=== PATIENT | female | born 1980 | race Two or more races ===

== ENCOUNTER 2021-02-10 22:31 | Emergency (ER) | payer MEDICAID ==
[~2021-02-10] VITALS: Ht 175.3 cm; Wt 81.8 kg
[2021-02-10] MEDS ORDERED: iohexol 350MG/ML 100ml bottle IV ONE (23:11)
[2021-02-10 23:25] LABS: BASOPHILS # (AUTO) 0.1 X10'3 (0-0.2); BASOPHILS % (AUTO) 0.7 % (0-1); EOSINOPHILS # (AUTO) 0.7 X10'3 (0-0.9); EOSINOPHILS % (AUTO) 4.2 % (0-6); HEMATOCRIT 38.9 % (35.0-45.0); HEMOGLOBIN 13.1 g/dl (12.0-16.0); LYMPHOCYTES # (AUTO) 4.2 X10'3 (1.1-4.8); LYMPHOCYTES % (AUTO) 25.5 % (21-51); MEAN CORPUSCULAR HEMOGLOBIN 27.4 PG (27.0-31.0); MEAN CORPUSCULAR HGB CONC 33.6 g/dL (33.0-36.5); MEAN CORPUSCULAR VOLUME 81.5 FL (78-98); MEAN PLATELET VOLUME 8.1 FL (7.4-10.4); MONOCYTES # (AUTO) 0.9 X10'3 (0-0.9); MONOCYTES % (AUTO) 5.4 % (2-12); NEUTROPHILS # (AUTO) 10.6 X10'3 (1.8-7.7); NEUTROPHILS % (AUTO) 64.2 % (42-75); PLATELET COUNT 405 X10'3 (140-440); RED BLOOD COUNT 4.78 X10'6 (4.20-5.60); WHITE BLOOD COUNT 16.5 X10'3 (4.5-11.0)
[2021-02-10 23:37] LABS: ALANINE AMINOTRANSFERASE 25 U/L (12-78); ALBUMIN 3.4 G/DL (3.4-5.0); ALBUMIN/GLOBULIN RATIO 0.8 (1.1-1.5); ALKALINE PHOSPHATASE 87 IU/L (46-116); ANION GAP 9 (8-16); ASPARTATE AMINO TRANSFERASE 15 U/L (10-37); BILIRUBIN,TOTAL 0.4 MG/DL (0.1-1.0); BLOOD UREA NITROGEN 10 MG/DL (7-18); BUN/CREATININE RATIO 10.5 (6.6-38.0); CALCIUM 8.6 MG/DL (8.5-10.1); CHLORIDE 104 MMOL/L (99-107); CREATININE 0.95 MG/DL (0.40-0.90); GLUCOSE 108 MG/DL (70-104); POTASSIUM 3.6 MMOL/L (3.5-5.1); SODIUM 140 MMOL/L (135-145); TOTAL CARBON DIOXIDE 27.3 MMOL/L (24-32); TOTAL PROTEIN 7.7 G/DL (6.4-8.2); eGFR 65 ML/MIN
[2021-02-11] MEDS ORDERED: NAPR-56 PO (01:25)
[2021-02-11 01:35] VITALS: BP 154/67
== END 2021-02-11 01:37 | disposition home or self-care (01) ==
LOC: ER 22:35
DX: R06.02 Shortness of breath (principal); R60.0 Localized edema; Z86.16 Personal history of COVID-19; Z79.899 Other long term (current) drug therapy
CPT/HCPCS: 36415; 71275; 80053; 85025; 93005; 93971; 99285; Q9967

== ENCOUNTER 2021-05-12 06:29 | Emergency (ER) | payer MEDICAID ==
[~2021-05-12] VITALS: Ht 175.3 cm; Wt 79.5 kg
[2021-05-12 06:35] VITALS: BP 126/73
[2021-05-12] MEDS ORDERED: NEOM28.37 TOP (08:10)
[2021-05-12] MEDS ORDERED: CEPH250T PO (08:10)
== END 2021-05-12 08:24 | disposition home or self-care (01) ==
LOC: ER 06:29
DX: T23.421A Corrosion of unspecified degree of single right finger (nail) except thumb, initial encounter (principal); Y93.89 Activity, other specified; Y92.89 Other specified places as the place of occurrence of the external cause; Y99.8 Other external cause status; F32.9 Major depressive disorder, single episode, unspecified; Z91.018 Allergy to other foods; Z79.899 Other long term (current) drug therapy
CPT/HCPCS: 99283

== ENCOUNTER 2021-05-16 22:28 | Emergency (ER) | payer MEDICAID ==
[~2021-05-16] VITALS: Ht 175.3 cm; Wt 79.5 kg
[~2021-05-16 22:28] MED LIST: CEPH250T PO; NEOM28.37 TOP
[2021-05-16 22:36] VITALS: BP 110/55
[2021-05-16] MEDS ORDERED: amox tr/potassium clavulanate 875/125mg TAB PO ONE (23:20)
[2021-05-16] MEDS ORDERED: AMOX-117 PO (23:20)
[2021-05-16] MEDS ORDERED: IBUP-1984 PO (23:20)
== END 2021-05-16 23:43 | disposition home or self-care (01) ==
LOC: ER 22:29
DX: T23.7 Corrosion of third degree of wrist and hand (principal); F32.9 Major depressive disorder, single episode, unspecified; Z91.018 Allergy to other foods
CPT/HCPCS: 99283

== ENCOUNTER 2021-05-23 06:42 | Emergency (ER) | payer MEDICAID ==
[~2021-05-23] VITALS: Ht 175.3 cm; Wt 81.8 kg
[~2021-05-23 06:42] MED LIST changes: +AMOX-117 PO; -CEPH250T PO
[2021-05-23 07:27] VITALS: BP 114/87
== END 2021-05-23 11:05 | disposition home or self-care (01) ==
LOC: ER 06:45
DX: T23.129A Burn of first degree of unspecified single finger (nail) except thumb, initial encounter (principal); F32.9 Major depressive disorder, single episode, unspecified; Z91.018 Allergy to other foods; Z79.899 Other long term (current) drug therapy; T65.891A Toxic effect of other specified substances, accidental (unintentional), initial encounter; Y92.89 Other specified places as the place of occurrence of the external cause
CPT/HCPCS: 99282